=== PATIENT | female | born 1970 | race Caucasian/White ===

== ENCOUNTER 2022-02-02 16:06 | Emergency (ER) | payer MEDICAID ==
[~2022-02-02] VITALS: Ht 167.6 cm; Wt 75.8 kg
[2022-02-02 16:20] VITALS: BP 121/83
--- NOTE | 2022-02-02 16:28 | NUR ---
Mane fabian in [facility] - 02/02/22 at 1630 by MED1 PT AMB TO BED 7
--- NOTE | 2022-02-02 16:30 | NUR ---
PT AMB TO BED 6
[2022-02-02] MEDS ORDERED: LIDOCAINE MPF 1% 10 MG/ML VIAL INJ ONE (18:05)
--- NOTE | 2022-02-02 18:31 | NUR ---
KATINA VASQUEZ AT BEDSIDE.
--- NOTE | 2022-02-02 18:33 | NUR ---
51 y/o female, c/o right wrist laceration in relation to event where pt states that she was cutting carpet 45 minutes ago when she accidentally cut herself with a knife. states has not seen a PCP in 5 years and therefore does not have an up-to-date tetanus. wound is not actively bleeding. a&o x4 with even and steady gait. pmh: denies nka
[2022-02-02] MEDS ORDERED: BACITRACIN OINT 500 UNITS/GM PKT TP ONE (19:00)
[2022-02-02] MEDS ORDERED: ACETAMINOPHEN EXTRA STRENGTH 500 MG TAB ONE (19:42)
[2022-02-02 20:30] VITALS: BP 126/86
--- NOTE | 2022-02-02 20:35 | NUR ---
Patient discharged with v/s stable. Written and verbal after care instructions given and explained. Patient verbalized understanding. Ambulatory with steady gait. All questions addressed prior to discharge. Advised to follow up with PMD.
[2022-02-04 08:08] LABS: HEPATITIS A ANTIBODY IGM Negative (Negative); HEPATITIS B CORE AB TOTAL Negative (Negative); HEPATITIS B SURFACE ANTIBODY Non Reactive (.); HEPATITIS B SURFACE ANTIGEN Negative (Negative)
== END 2022-02-02 20:35 | disposition home or self-care (01) ==
LOC: MED 16:06
DX: S61.511A Laceration without foreign body of right wrist, initial encounter (principal); W26.0XXA Contact with knife, initial encounter; Y93.89 Activity, other specified; Y92.89 Other specified places as the place of occurrence of the external cause; Y99.8 Other external cause status
CPT/HCPCS: 12002; 36415; 86702; 86703; 86704; 86706; 86708; 86709; 86803; 87340; 90471; 90715; 99283; J2001